=== PATIENT | male | born 2000 | race Caucasian/White ===

== ENCOUNTER 2021-05-11 12:51 | Observation (INO) | payer BC, OTHER ==
[2021-05-11 13:25] LABS: CHLORIDE,CL 103 mEq/L (98-106); SODIUM,NA 141 mEq/L (136-145)
[2021-05-11] MEDS ORDERED: Diphtheria,Pertussis(Acell),Tetanus Vaccine 0.5 ML Syringe IM ONE (14:26)
[2021-05-11] MEDS ORDERED: Lidocaine 1% with EPINEPHrine 1:100,000 20 ML MDV INJECT ONE (14:27)
[2021-05-11] MEDS ORDERED: Bacitracin/Neomycin/Polymyxin B Oint 28.4 GM Tube TOP PRN (15:00)
[2021-05-11] MEDS ORDERED: Acetaminophen/HYDROcodone 325-5 MG Tab PO ONE (16:02)
[2021-05-11] MEDS ORDERED: Bacitracin/Neomycin/Polymyxin B Oint 0.9 GM U/D Packet TOP ONE (16:26)
[2021-05-11] MEDS ORDERED: Ondansetron 4 MG Tab.DIS PO ONE (16:31)
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
[2021-05-11] MEDS ORDERED: Acetaminophen 325 MG Tab PO PRN (17:16)
[2021-05-11] MEDS ORDERED: Ondansetron 4 MG Tab.DIS PO PRN (17:16)
[2021-05-11] MEDS ORDERED: Ibuprofen 200 MG Tab PO PRN (17:16)
[2021-05-11] MEDS: Acetaminophen/HYDROcodone 325-5 MG Tab PO PRN (23:44)
[2021-05-11] MEDS: AMOXICILLIN 500 MG PO SCH (23:46)
[2021-05-12 07:30] LABS: CHLORIDE,CL 103 mEq/L (98-106); SODIUM,NA 141 mEq/L (136-145)
[2021-05-12] MEDS: AMOXICILLIN 500 MG PO SCH (07:35)
[2021-05-12] MEDS: Acetaminophen/HYDROcodone 325-5 MG Tab PO PRN (08:33)
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
== END 2021-05-12 10:35 | disposition home or self-care (01) ==
LOC: CC.ED 12:51 → CC.MS 16:47 → UNDOADMOB 17:06
PROVIDERS: ADMIT Physician Assistant Medical; ATTEND Family Medicine
DX: S32.039A Unspecified fracture of third lumbar vertebra, initial encounter for closed fracture (principal); S32.049A Unspecified fracture of fourth lumbar vertebra, initial encounter for closed fracture; T07.XXXA Unspecified multiple injuries, initial encounter; J45.909 Unspecified asthma, uncomplicated; V89.2XXA Person injured in unspecified motor-vehicle accident, traffic, initial encounter
CPT/HCPCS: 12001; 36415; 71045; 71046; 72125; 72128; 72131; 72170; 73590; 80048; 80053; 80307; 82150; 82550; 83605; 85025; 85610; 90471; 90715; 99285; A9270; G0378